=== PATIENT | female | born 1965 | race Caucasian/White ===

== ENCOUNTER 2020-03-25 19:32 | Emergency (ER) | payer MEDICAID ==
[~2020-03-25] VITALS: Ht 160 cm; Wt 63.5 kg
--- NOTE | 2020-03-25 19:50 | NUR ---
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 -SOB -DIAPHORESIS. VSS, PT CONNECTED TO THE AUDIO VISUAL SPECIALIST AND POX. WILL CONTINUE TO MONITOR OT.
[2020-03-25 20:30] LABS: BASOPHILS # (AUTO) 0.1 /CMM (0.0-0.2); BASOPHILS % (AUTO) 1.7 % (0.0-2.0); EOSINOPHILS % (AUTO) 0.8 % (0.0-6.0); HEMATOCRIT 41 % (33-45); HEMOGLOBIN 13.3 g/dL (11.5-14.8); LYMPHOCYTES # (AUTO) 0.3 /CMM (0.8-4.8); LYMPHOCYTES % (AUTO) 4.1 % (20.0-44.0); MEAN CORPUSCULAR HGB CONC 33 g/dl (31.0-36.0); MEAN CORPUSCULAR VOLUME 93 fL (82-100); MONOCYTES # (AUTO) 0.2 /CMM (0.1-1.30); MONOCYTES % (AUTO) 2.9 % (2.0-12.0); NEUTROPHILS # (AUTO) 7.3 /CMM (1.8-8.9); NEUTROPHILS % (AUTO) 90.5 % (43.0-81.0); PLATELET COUNT (AUTO) 219 /CMM (150-450); RED BLOOD CELL COUNT(AUTO) 4.41 MIL/uL (4.0-5.2); WHITE BLOOD COUNT (AUTO) 8.1 K/uL (4.3-11.0)
--- NOTE | 2020-03-25 20:39 | NUR ---
XRAY AT BEDSIDE.
[2020-03-25 20:41] LABS: CALCIUM, SERUM 9.5 mg/dL (8.5-10.1); POTASSIUM 3.5 mmol/L (3.5-5.1)
--- NOTE | 2020-03-25 22:00 | NUR ---
Patient discharged to home in stable condition. Written and verbal after care instructions given. Patient verbalizes understanding of instruction.pt. ambulatory with a steady gait
[2020-03-25 22:27] VITALS: BP 124/78
== END 2020-03-25 22:27 | disposition home or self-care (01) ==
LOC: ER 19:32
DX: R07.89 Other chest pain (principal); J45.909 Unspecified asthma, uncomplicated; F41.9 Anxiety disorder, unspecified
CPT/HCPCS: 36415; 71045-TC; 80048-TC; 84484-TC; 85025-TC

== ENCOUNTER 2020-04-05 15:42 | Emergency (ER) | payer MEDICAID ==
[~2020-04-05] VITALS: Ht 162.6 cm; Wt 57.2 kg
[2020-04-05] MEDS ORDERED: ASPIRIN 325 MG TABLET PO ONE (16:30)
[2020-04-05] MEDS ORDERED: IV NS 0.9% 1,000 ML BAG IV ONE (16:30)
[2020-04-05] MEDS ORDERED: NITROGLYCERIN 0.4 MG/TAB BOTTLE SL ONE (16:30)
[2020-04-05] MEDS ORDERED: ONDANSETRON HCL/PF 4 MG/2 ML VIAL IVP ONE (16:30)
[2020-04-05] MEDS ORDERED: MORPHINE SULFATE INJ 2 MG/ML DISP.SYRIN IV ONE (16:30)
[2020-04-05] MEDS ORDERED: MORPHINE SULFATE INJ 4 MG/ML DISP.SYRIN ONE (17:14)
[2020-04-05] MEDS ORDERED: NITROGLYCERIN 0.4 MG/TAB BOTTLE ONE (17:14)
[2020-04-05] MEDS ORDERED: ONDANSETRON HCL/PF 4 MG/2 ML VIAL ONE (17:14)
[2020-04-05] MEDS ORDERED: ASPIRIN 325 MG TABLET ONE (17:14)
[2020-04-05 18:09] LABS: BASOPHILS % (AUTO) 0.4 % (0.0-2.0); HEMATOCRIT 39 % (33-45); HEMOGLOBIN 12.8 g/dL (11.5-14.8); LYMPHOCYTES # (AUTO) 0.6 /CMM (0.8-4.8); LYMPHOCYTES % (AUTO) 7.8 % (20.0-44.0); MEAN CORPUSCULAR HGB CONC 33 g/dl (31.0-36.0); MEAN CORPUSCULAR VOLUME 93 fL (82-100); MONOCYTES # (AUTO) 0.4 /CMM (0.1-1.30); MONOCYTES % (AUTO) 4.8 % (2.0-12.0); NEUTROPHILS # (AUTO) 6.3 /CMM (1.8-8.9); PLATELET COUNT (AUTO) 182 /CMM (150-450); RED BLOOD CELL COUNT(AUTO) 4.18 MIL/uL (4.0-5.2); WHITE BLOOD COUNT (AUTO) 7.4 K/uL (4.3-11.0)
[2020-04-05 18:42] LABS: ALANINE AMINOTRANSFERASE 18 U/L (12-78); ALBUMIN 3.6 g/dL (3.4-5.0); ALKALINE PHOSPHATASE 81 U/L (46-116); ASPARTATE AMINOTRANSFERASE 16 U/L (15-37); BILIRUBIN,DIRECT 0.2 mg/dL (0.0-0.2); BILIRUBIN,TOTAL 0.6 mg/dL (0.2-1.0); CALCIUM, SERUM 8.9 mg/dL (8.5-10.1); CARBON DIOXIDE 27 mmol/L (21-32); CHLORIDE 105 mmol/L (98-107); CREATININE 0.6 mg/dL (0.6-1.3); GLUCOSE 97 mg/dL (74-106); POTASSIUM 3.7 mmol/L (3.5-5.1); SODIUM SERUM 140 mmol/L (136-145); UREA NITROGEN, BLOOD 12 mg/dL (7-18)
[2020-04-05] MEDS ORDERED: LORAZEPAM INJ 2 MG/ML VIAL IV ONE (19:00)
--- NOTE | 2020-04-05 19:40 | NUR ---
ASSUMED CARE FOR PATIENT AT THIS TIME. PT BIBFAMILY C/O MIDSTERNAL CHEST PAIN RADIATING TO LEFT UPPER EXT, WORSE TODAY. PT RESTING COMFORTABLY IN BED. VITAL SIGNS STABLE. 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 WILL CONTINUE TO MONITOR
[2020-04-05] MEDS ORDERED: LORAZEPAM INJ 2 MG/ML VIAL ONE (19:57)
--- NOTE | 2020-04-05 22:33 | NUR ---
Patient discharged to home in stable condition. Written and verbal after care instructions given. Patient verbalizes understanding of instruction. IV removed. Catheter intact and site benign. Pressure and 4x4 applied to site. No bleeding noted.Pt ambulatory with a steady gait
[2020-04-05 22:34] VITALS: BP 117/84
== END 2020-04-05 22:55 | disposition home or self-care (01) ==
LOC: ER 15:44
DX: R07.89 Other chest pain (principal); F41.9 Anxiety disorder, unspecified; J45.909 Unspecified asthma, uncomplicated
CPT/HCPCS: 36415; 71045; 80048; 80076; 84484 ×2; 85025; 85378; 93005 ×2; 96361; 96374; 96375; 99285; J2060; J2270; J2405; J7030

== ENCOUNTER 2022-05-16 16:44 | Emergency (ER) | payer MEDICAID, OTHER ==
[~2022-05-16] VITALS: Ht 162.6 cm; Wt 68.0 kg
--- NOTE | 2022-05-16 17:00 | NUR ---
THROAT TIGHTNESS, GENERALIZED RASH SINCE TUESDAY S/P TAKING PROTONIX FOR ACID REFLUX LAST TUESDAY. AMBULATORY, PLACED IN BED, BREATHING EVEN AND UINLABORED SATURATING AT 97%RA.
--- NOTE | 2022-05-16 17:10 | NUR ---
AT BEDSIDE FOR EVAL
[2022-05-16] MEDS ORDERED: predniSONE 20 MG TABLET ONE (17:23)
[2022-05-16] MEDS ORDERED: diphenhydrAMINE HCL 25 MG CAPSULE ONE (17:24)
[2022-05-16] MEDS ORDERED: FAMOTIDINE (20 MG) 20 MG TABLET ONE (17:24)
[2022-05-16] MEDS ORDERED: diphenhydrAMINE HCL 25 MG CAPSULE PO ONE (17:30)
[2022-05-16] MEDS ORDERED: predniSONE 50 MG TABLET PO ONE (17:30)
[2022-05-16] MEDS ORDERED: FAMOTIDINE (20 MG) 20 MG TABLET PO ONE (17:30)
[2022-05-16] MEDS ORDERED: PRED20TA PO (19:05)
--- NOTE | 2022-05-16 19:37 | NUR ---
Patient discharged to home in stable condition. Written and verbal after care instructions given. Patient verbalizes understanding of instruction.
[2022-05-16 19:48] VITALS: BP 115/75
== END 2022-05-16 19:37 | disposition home or self-care (01) ==
LOC: ER 16:50
DX: R21 Rash and other nonspecific skin eruption (principal); T78.49XA Other allergy, initial encounter; T47.1X5A Adverse effect of other antacids and anti-gastric-secretion drugs, initial encounter; J45.909 Unspecified asthma, uncomplicated; F41.9 Anxiety disorder, unspecified; Y92.89 Other specified places as the place of occurrence of the external cause
CPT/HCPCS: 99284; 71045; Q0163; J7512